=== PATIENT | female | born 1950 | race Caucasian/White ===

== ENCOUNTER 2017-12-06 10:54 | Day surgery (SDC) | payer MEDICARE ==
[~2017-12-06] VITALS: Ht 157.5 cm; Wt 52.2 kg
[~2017-12-06 10:54] MED LIST: ALTOPREV40 MG PO; AMLODIPINE5 MG PO; ASPIRIN LOW DOS81 MG PO; BUPROPION150 M3 PO; CALCIUM CITRATE +D; DICLOFENAC100 M1 PO; FLUOXETINE20 MG PO; GABAPENTIN100 MG PO; MULTIVITAMI3 PO; PROBIOTIC PO; PROTONIX40 M2 PO; TRAMADOL HYDROC50 MG PO; VALIUM5 MG PO; VIT C/ACEROL500 MG PO; [UNRECOGNIZED DRUG - OTHER] PO
[2017-12-06 14:30] VITALS: BP 137/74
== END 2017-12-06 14:50 | disposition home or self-care (01) ==
LOC: ENDO 10:54 → ORM 16:10 → ENDO 16:10 → ORM 16:15
PROVIDERS: ATTEND Internal Medicine Gastroenterology
PROC: 0DBN8ZX Excision of Sigmoid Colon, Via Natural or Artificial Opening Endoscopic, Diagnostic (ICD-10-PCS; principal; 2017-12-06)
DX: R19.7 Diarrhea, unspecified (principal); K64.4 Residual hemorrhoidal skin tags; K57.30 Diverticulosis of large intestine without perforation or abscess without bleeding; R10.33 Periumbilical pain; R11.0 Nausea; R14.0 Abdominal distension (gaseous); I10 Essential (primary) hypertension; Z86.010 Personal history of colon polyps

== ENCOUNTER 2019-06-12 08:35 | Day surgery (SDC) | payer MEDICARE ==
[~2019-06-12] VITALS: Ht 157.5 cm; Wt 52.2 kg
[~2019-06-12 08:35] MED LIST changes: +ALBUTEROL SUL0.083 % IN; +BUDESONID2 IN
[2019-06-12 11:55] VITALS: BP 147/66
== END 2019-06-12 12:06 | disposition home or self-care (01) ==
LOC: ENDO 08:35 → ORM 10:40 → ENDO 12:06
PROVIDERS: ATTEND Internal Medicine Gastroenterology
PROC: 0DBL8ZX Excision of Transverse Colon, Via Natural or Artificial Opening Endoscopic, Diagnostic (ICD-10-PCS; principal; 2019-06-12)
DX: K63.5 Polyp of colon (principal); K57.30 Diverticulosis of large intestine without perforation or abscess without bleeding; K63.4 Enteroptosis; K64.4 Residual hemorrhoidal skin tags; I10 Essential (primary) hypertension; Z86.010 Personal history of colon polyps